=== PATIENT | female | born 1940 | race Hispanic/Latino ===

== ENCOUNTER 2021-09-30 19:56 | Emergency (ER) | payer MEDICARE, OTHER ==
[2021-09-30 21:58] LABS: #Eosinphils 0.1 10x3/uL (0.0-0.5); #Monocytes 0.8 10x3/uL (0.0-1.1); #Neutrophils 6.5 10x3/uL (1.5-8.4); %Basophils 0.4 % (0.0-2.0); %Eosinophils 0.5 % (0.0-6.0); %Lymphocytes 19.8 % (18.0-47.0); %Monocytes 8.4 % (0.0-10.0); %Neutrophils 70.4 % (40.0-75.0); Hemoglobin 13.6 g/dL (12.0-15.5); Mean Corpuscular HGB CONC 33.4 g/dL (32.0-36.0); Mean Corpuscular Volume 80.8 fl (81.6-98.3); Mean Platelet Volume 10.7 fl (7.4-10.4); Platelet Count 187 10x3/uL (150-450); RBC Distribution Width 15.8 % (11.5-14.5); Red Blood Cell (RBC) Count 5.04 10x6/uL (3.90-5.03); White Blood Cell (WBC) Count 9.2 10x3/uL (3.5-10.5)
[2021-09-30] MEDS ORDERED: Acetaminophen 500 MG TAB ONE (22:06)
[2021-09-30 22:07] LABS: ALT (SGPT) 44 U/L (8-55); AST (SGOT) 42 U/L (5-34); Albumin 4.1 g/dL (3.4-4.8); Alkaline Phosphatase 88 U/L (40-110); Anion Gap 16 mmol/L (10-20); BUN (Urea Nitrogen) 22 mg/dL (9.8-20.1); Calc. Creatinine Clearance 0 mL/min (70-130); Calcium 9.8 mg/dL (7.8-10.44); Carbon Dioxide 25 mmol/L (23-31); Chloride 99 mmol/L (98-107); Globulin 3.9 g/dL (2.4-3.5); Glucose 83 mg/dL (83-110); Potassium 4.5 mmol/L (3.5-5.1); Sodium 135 mmol/L (136-145)
[2021-09-30 22:08] LABS: Bilirubin Neg (Negative); Blood, Urine Negative (Negative); Clarity Cloudy (Clear); Glucose, Urine (Dipstick) Normal (Negative); Ketone, Urine Negative (Negative); Leukocyte 25 (Negative); Nitrite Positive (Negative); Protein, Urine (Dipstick) Negative (Neg-Trace)
[2021-09-30 22:15] LABS: RBC/HPF 0-3 HPF (0-3); Squamous Epithelial 0-3 HPF (0-3)
[2021-09-30 22:16] LABS: Bacteria/HPF 4+ HPF (None Seen); Triple Phosphate Crystal 2+ HPF (None Seen)
== END 2021-09-30 23:08 ==
LOC: CSHERS 19:56
DX: N39.0 Urinary tract infection, site not specified (principal); I48.91 Unspecified atrial fibrillation; E03.9 Hypothyroidism, unspecified; I10 Essential (primary) hypertension; K21.9 Gastro-esophageal reflux disease without esophagitis; Z79.899 Other long term (current) drug therapy; W19.XXXA Unspecified fall, initial encounter; Y92.129 Unspecified place in nursing home as the place of occurrence of the external cause
CPT/HCPCS: 51701; 72100; 80053; 81003; 81015; 85025

== ENCOUNTER 2021-10-21 09:59 | Inpatient (IN) | payer MEDICARE, OTHER ==
[2021-10-21 10:24] LABS: #Monocytes 0.7 10x3/uL (0.0-1.1); #Neutrophils 9.2 10x3/uL (1.5-8.4); %Basophils 0.2 % (0.0-2.0); %Eosinophils 0.1 % (0.0-6.0); %Monocytes 5.5 % (0.0-10.0); %Neutrophils 71.9 % (40.0-75.0); Hemoglobin 13.9 g/dL (12.0-15.5); Mean Corpuscular HGB CONC 33.5 g/dL (32.0-36.0); Mean Corpuscular Hemoglobin 27.1 pg (27.0-33.0); Mean Corpuscular Volume 80.9 fl (81.6-98.3); Mean Platelet Volume 11.1 fl (7.4-10.4); Platelet Count 182 10x3/uL (150-450); RBC Distribution Width 15.2 % (11.5-14.5); Red Blood Cell (RBC) Count 5.13 10x6/uL (3.90-5.03); White Blood Cell (WBC) Count 12.8 10x3/uL (3.5-10.5)
[2021-10-21 10:41] LABS: ALT (SGPT) 37 U/L (8-55); AST (SGOT) 26 U/L (5-34); Albumin 3.9 g/dL (3.4-4.8); Alkaline Phosphatase 99 U/L (40-110); Anion Gap 23 mmol/L (10-20); BUN (Urea Nitrogen) 35 mg/dL (9.8-20.1); Bilirubin, Total 1.5 mg/dL (0.2-1.2); Calc. Creatinine Clearance 0 mL/min (70-130); Calcium 10.2 mg/dL (7.8-10.44); Carbon Dioxide 21 mmol/L (23-31); Chloride 98 mmol/L (98-107); Globulin 4.4 g/dL (2.4-3.5); Glucose 110 mg/dL (83-110); Potassium 4.3 mmol/L (3.5-5.1); Protein, Total 8.3 g/dL (5.8-8.1); Sodium 138 mmol/L (136-145)
[2021-10-21] MEDS ORDERED: Acetaminophen 325 MG Suppository ONE (10:49)
[2021-10-21] MEDS ORDERED: cefTRIAXone\\ROCEPHIN 2 GM VIAL ONE (11:07)
[2021-10-21 11:19] LABS: Actual Bicarbonate (HCO3v) 26 mEq/L (22-28); Base Excess 1.9 mEq/L (-2.0 to +3.0); Calcium, Ionized (venous) 1.15 mmol/L (1.16-1.32); Chloride (VBG) 98 mmol/L (98-106); Hemoglobin (Hb) 14.6 g/dL (11.7-16.1); Potassium (VBG) 4.28 mmol/L (3.70-5.30); Puncture Site Other Site; Sodium 137.6 mmol/L (133-146); pH (venous) 7.43 (7.32-7.43)
[2021-10-21 11:22] LABS: Bilirubin Neg (Negative); Blood, Urine 25 (Negative); Clarity Slightly Cloudy (Clear); Glucose, Urine (Dipstick) Normal (Negative); Ketone, Urine 5 mg/dL (Negative); Leukocyte 500 (Negative); Nitrite Negative (Negative); Protein, Urine (Dipstick) Negative (Neg-Trace); Specific Gravity, Urine 1.025 (1.002-1.036); Urobilinogen Normal mg/dL (Less than 2)
[2021-10-21 11:29] LABS: SARS-CoV-2 NAA Rapid Test Not Detected (NotDetected)
[2021-10-21 11:39] LABS: RBC/HPF 0-3 HPF (0-3)
[2021-10-21 11:40] LABS: Squamous Epithelial 0-3 HPF (0-3)
[2021-10-21 11:41] LABS: Bacteria/HPF 2+ HPF (None Seen)
[2021-10-21] MEDS ORDERED: Azithromycin 500 MG VIAL ONE (12:08)
[2021-10-21] MEDS ORDERED: Sodium Chloride 0.9% 1,000 ML IV SCH (14:30)
[2021-10-21] MEDS: Sodium Chloride 0.9% 1,000 ML IV SCH (15:05)
[2021-10-21 15:19] LABS: Lactic Acid 2.4 mmol/L (0.5-2.2)
[2021-10-21] MEDS ORDERED: Piperacillin/Tazobactam 3.375 GM in Sodium Chloride 0.9% 100 ML IVPB SCH (16:00)
[2021-10-21 16:06] VITALS: BMI 29.2
[2021-10-21] MEDS ORDERED: Famotidine/PF 20 mg/2ml Vial SLOW IVP SCH (21:00)
[2021-10-21] MEDS: Piperacillin/Tazobactam 3.375 GM in Sodium Chloride 0.9% 100 ML IVPB SCH (21:30)
[2021-10-22] MEDS: Piperacillin/Tazobactam 3.375 GM in Sodium Chloride 0.9% 100 ML IVPB SCH ×3 (03:42→19:43)
[2021-10-22 04:17] LABS: Hemoglobin 12.8 g/dL (12.0-15.5); Mean Corpuscular HGB CONC 32.4 g/dL (32.0-36.0); Mean Corpuscular Hemoglobin 26.8 pg (27.0-33.0); Mean Corpuscular Volume 82.8 fl (81.6-98.3); Mean Platelet Volume 10.6 fl (7.4-10.4); Platelet Count 164 10x3/uL (150-450); RBC Distribution Width 15.2 % (11.5-14.5); Red Blood Cell (RBC) Count 4.77 10x6/uL (3.90-5.03); White Blood Cell (WBC) Count 10.4 10x3/uL (3.5-10.5)
[2021-10-22 04:35] LABS: ALT (SGPT) 32 U/L (8-55); AST (SGOT) 26 U/L (5-34); Albumin 3.6 g/dL (3.4-4.8); Alkaline Phosphatase 87 U/L (40-110); Anion Gap 19 mmol/L (10-20); BUN (Urea Nitrogen) 25 mg/dL (9.8-20.1); Bilirubin, Total 0.9 mg/dL (0.2-1.2); Calc. Creatinine Clearance 73 mL/min (70-130); Calcium 9.6 mg/dL (7.8-10.44); Carbon Dioxide 22 mmol/L (23-31); Chloride 106 mmol/L (98-107); Globulin 4.1 g/dL (2.4-3.5); Glucose 109 mg/dL (83-110); Protein, Total 7.7 g/dL (5.8-8.1); Sodium 143 mmol/L (136-145)
[2021-10-22] MEDS: Sodium Chloride 0.9% 1,000 ML IV SCH (05:45)
[2021-10-22 05:51] LABS: MDiff Complete? YES; Platelet Morphology Comment Appears Adequate; RBC Morphology Normal
[2021-10-22 05:55] LABS: Band 13 % (5-11); Lymphocytes 11 % (21-51); Monocytes 5 % (0-10); Neutrophil 70 % (42-75); Reactive Lymphocytes 1 % (0-10)
[2021-10-22] MEDS: Famotidine/PF 20 mg/2ml Vial SLOW IVP SCH ×2 (07:35→19:43)
[2021-10-22] MEDS: Enoxaparin Sodium 40 MG/0.4 ML SYRINGE SC SCH (07:36)
[2021-10-23] MEDS: Piperacillin/Tazobactam 3.375 GM in Sodium Chloride 0.9% 100 ML IVPB SCH ×3 (04:32→20:38)
[2021-10-23] MEDS: Levothyroxine Sodium 25 MCG TAB PO SCH (05:56)
[2021-10-23] MEDS: Sodium Chloride 0.9% 1,000 ML IV SCH ×3 (07:17→20:04)
[2021-10-23] MEDS: Enoxaparin Sodium 40 MG/0.4 ML SYRINGE SC SCH (07:54)
[2021-10-23] MEDS: Famotidine/PF 20 mg/2ml Vial SLOW IVP SCH ×2 (07:54→20:40)
[2021-10-24] MEDS: Levothyroxine Sodium 25 MCG TAB PO SCH (05:41)
[2021-10-24] MEDS: Enoxaparin Sodium 40 MG/0.4 ML SYRINGE SC SCH (09:36)
[2021-10-24] MEDS: Famotidine/PF 20 mg/2ml Vial SLOW IVP SCH ×2 (09:36→21:13)
[2021-10-24] MEDS ORDERED: Bisacodyl 10 MG SUPP PR PRN (14:49)
[2021-10-24] MEDS ORDERED: Calcium Carbonate 500 MG ChewTAB PO PRN (14:55)
[2021-10-24 15:49] LABS: #Eosinphils 0.2 10x3/uL (0.0-0.5); #Monocytes 0.9 10x3/uL (0.0-1.1); #Neutrophils 6.9 10x3/uL (1.5-8.4); %Basophils 0.4 % (0.0-2.0); %Eosinophils 1.7 % (0.0-6.0); %Monocytes 9.2 % (0.0-10.0); %Neutrophils 74.9 % (40.0-75.0); Hemoglobin 11.3 g/dL (12.0-15.5); Mean Corpuscular HGB CONC 33.1 g/dL (32.0-36.0); Mean Corpuscular Hemoglobin 26.8 pg (27.0-33.0); Mean Corpuscular Volume 80.8 fl (81.6-98.3); Mean Platelet Volume 10.2 fl (7.4-10.4); Platelet Count 218 10x3/uL (150-450); RBC Distribution Width 15.1 % (11.5-14.5); Red Blood Cell (RBC) Count 4.22 10x6/uL (3.90-5.03); White Blood Cell (WBC) Count 9.2 10x3/uL (3.5-10.5)
[2021-10-24 16:03] LABS: Anion Gap 13 mmol/L (10-20); BUN (Urea Nitrogen) 9 mg/dL (9.8-20.1); Calc. Creatinine Clearance 80 mL/min (70-130); Calcium 8.3 mg/dL (7.8-10.44); Carbon Dioxide 25 mmol/L (23-31); Chloride 103 mmol/L (98-107); Glucose 130 mg/dL (83-110); Sodium 138 mmol/L (136-145)
[2021-10-24 16:10] LABS: Potassium 2.9 mmol/L (3.5-5.1)
[2021-10-24] MEDS: Potassium Chloride 20 MEQ in Premix Bag 1 BAG IVPB SCH ×3 (18:24→23:10)
[2021-10-25] MEDS ORDERED: Aripiprazole 2 MG TAB PO SCH (01:00)
[2021-10-25] MEDS: Potassium Chloride 20 MEQ in Premix Bag 1 BAG IVPB SCH (01:27)
[2021-10-25 05:10] LABS: Anion Gap 15 mmol/L (10-20); BUN (Urea Nitrogen) 10 mg/dL (9.8-20.1); Calc. Creatinine Clearance 83 mL/min (70-130); Calcium 8.3 mg/dL (7.8-10.44); Carbon Dioxide 22 mmol/L (23-31); Chloride 107 mmol/L (98-107); Glucose 107 mg/dL (83-110); Potassium 4.1 mmol/L (3.5-5.1); Sodium 140 mmol/L (136-145)
[2021-10-25] MEDS: Levothyroxine Sodium 25 MCG TAB PO SCH (06:02)
[2021-10-25] MEDS: Enoxaparin Sodium 40 MG/0.4 ML SYRINGE SC SCH (09:13)
[2021-10-25] MEDS: Famotidine/PF 20 mg/2ml Vial SLOW IVP SCH ×2 (09:14→20:35)
[2021-10-26] MEDS: Levothyroxine Sodium 25 MCG TAB PO SCH (05:53)
[2021-10-26] MEDS: Famotidine/PF 20 mg/2ml Vial SLOW IVP SCH (09:51)
[2021-10-26] MEDS: Enoxaparin Sodium 40 MG/0.4 ML SYRINGE SC SCH (09:51)
[2021-10-26 11:51] VITALS: TEMP 97
[2021-10-26 15:58] VITALS: BP 103/42
== END 2021-10-26 17:53 | DRG 177 ==
LOC: CSHERS 09:59 → CSHIMCU 14:01 → CSHTELE 10-23 14:14
PROVIDERS: ADMIT Internal Medicine; ATTEND Internal Medicine
DX: J69.0 Pneumonitis due to inhalation of food and vomit (principal); J96.01 Acute respiratory failure with hypoxia; N39.0 Urinary tract infection, site not specified; G93.49 Other encephalopathy; T17.908A Unspecified foreign body in respiratory tract, part unspecified causing other injury, initial encounter; I10 Essential (primary) hypertension; Z66 Do not resuscitate; Z51.5 Encounter for palliative care; E03.9 Hypothyroidism, unspecified; F03.90 Unspecified dementia, unspecified severity, without behavioral disturbance, psychotic disturbance, mood disturbance, and anxiety; K21.9 Gastro-esophageal reflux disease without esophagitis; G47.00 Insomnia, unspecified; I48.91 Unspecified atrial fibrillation; F41.1 Generalized anxiety disorder; D63.8 Anemia in other chronic diseases classified elsewhere; Z96.651 Presence of right artificial knee joint; Z20.822 Contact with and (suspected) exposure to COVID-19; Z90.710 Acquired absence of both cervix and uterus; Z90.49 Acquired absence of other specified parts of digestive tract; Z87.440 Personal history of urinary (tract) infections; Z88.2 Allergy status to sulfonamides; Z95.810 Presence of automatic (implantable) cardiac defibrillator; Z87.891 Personal history of nicotine dependence; Z91.018 Allergy to other foods; Z79.890 Hormone replacement therapy; Z79.899 Other long term (current) drug therapy; Z79.52 Long term (current) use of systemic steroids
CPT/HCPCS: 36415; 51701; 70450; 71045; 80048; 80053; 81003; 81015; 82805; 83605; 83880; 84484; 85025; 85379; 87040; 93005; 94760; 96361; 96365; 96367; J0456; J0696; J1650; J2543; J3480; J3490; J7050; S0028